=== PATIENT | female | born 1990 | race African-American/Black ===

== ENCOUNTER 2021-03-28 19:07 | Emergency (ER) | payer OTHER ==
[~2021-03-28] VITALS: Ht 144.8 cm; Wt 92.5 kg
[2021-03-28 20:00] LABS: PLATELET COUNT 200 K/uL (152-353)
[2021-03-28 20:16] LABS: POTASSIUM 3.7 mmol/L (3.6-5.2)
[2021-03-28 21:30] VITALS: BP 128/62; TEMP 98.7
== END 2021-03-28 21:30 | disposition home or self-care (01) ==
LOC: ED 19:07
PROVIDERS: Emergency Medicine
DX: M94.0 Chondrocostal junction syndrome [Tietze] (principal)
CPT/HCPCS: 36415; 80053; 84484; 85027; 93005; 96372; 99283; J1885